=== PATIENT | male | born 1970 | race Caucasian/White ===

== ENCOUNTER 2019-08-08 12:39 | Day surgery (SDC) | payer OTHER ==
[~2019-08-08] VITALS: Ht 177.8 cm; Wt 87.2 kg
[~2019-08-08 12:39] MED LIST: ACET325 PO; ADAL40PEN SC; ARIP10 PO; Abilify5 MG; BISA10S PR; CIPRO; CYCL10 PO; DOCU100 PO; EMBREL INJ; ESCI20 PO; FAMO20 PO; Flomax0.4 MG PO; HYDMOR2 PO; Indomethacin50 MG PO; LEVO750 PO; LEXAPRO PO; MELO7.5 PO; METTREX2.5 PO; OMEP20ER PO; ONDA4ODT PO; OXYACE5T PO; PRAV10 PO; Prilosec20 MG PO; Robaxin500 MG PO; SACC250C PO; SUCR1 PO; Sulfamethoxazo1 EAC4 PO; Synthroid25 MCG PO; TAMS.4ER PO; TREXALL PO; [UNRECOGNIZED DRUG - REMARK]; [UNRECOGNIZED DRUG - REMARK]
--- NOTE | 2019-08-08 16:34 | NUR ---
08/08/19 1634 Marisabel David PT IS UP IN RECLINER, NO COMPLAINTS OF PAIN OR NAUSEA, IS AT CHAIRSIDE. VSS. PT IS COLD, SHAKING, PROVIDED HIM WITH WARM BLANKETS, HE IS VERY TALKATIVE NOW THAT HE IS IN THE RECLINER, HE ASKS A LOT OF QUESTIONS WHICH WERE ANSWERED. CALL LIGHT IN REACH.
== END 2019-08-08 17:10 | disposition home or self-care (01) ==
LOC: ORSCSDS 12:39
PROVIDERS: Orthopaedic Surgery
PROC: 0RNJ4ZZ Release Right Shoulder Joint, Percutaneous Endoscopic Approach (ICD-10-PCS; principal; 2019-08-08 14:05)
PROC: 0LS14ZZ Reposition Right Shoulder Tendon, Percutaneous Endoscopic Approach (ICD-10-PCS; principal; 2019-08-08 14:05)
PROC: 0LQ14ZZ Repair Right Shoulder Tendon, Percutaneous Endoscopic Approach (ICD-10-PCS; principal; 2019-08-08 14:05)
DX: M75.121 Complete rotator cuff tear or rupture of right shoulder, not specified as traumatic (principal); M75.21 Bicipital tendinitis, right shoulder; M75.51 Bursitis of right shoulder; M75.41 Impingement syndrome of right shoulder; E03.9 Hypothyroidism, unspecified; Z87.891 Personal history of nicotine dependence; Z79.899 Other long term (current) drug therapy
CPT/HCPCS: 82947; C1713; J0171; J0690; J1100; J1885; J2250; J2370; J2405; J2704; J2710; J2795; J3010; J7120

== ENCOUNTER 2022-06-05 00:58 | Day surgery (SDC) | payer OTHER ==
[~2022-06-05] VITALS: Wt 86.3 kg
[~2022-06-05 00:58] MED LIST changes: +INFLECTRA100 MG IV
== END 2022-06-05 11:55 | disposition home or self-care (01) ==
LOC: ATC 00:58
DX: L40.50 Arthropathic psoriasis, unspecified (principal); E03.9 Hypothyroidism, unspecified; Z88.8 Allergy status to other drugs, medicaments and biological substances; Z87.891 Personal history of nicotine dependence
CPT/HCPCS: 96375; 96413; 96415; A9270; J2920; J7050; Q5103

== ENCOUNTER 2022-07-31 01:24 | Day surgery (SDC) | payer OTHER ==
[~2022-07-31] VITALS: Wt 85.6 kg
== END 2022-07-31 12:05 | disposition home or self-care (01) ==
LOC: ATC 01:24
DX: L40.59 Other psoriatic arthropathy (principal); Z87.891 Personal history of nicotine dependence; E03.9 Hypothyroidism, unspecified; Z88.8 Allergy status to other drugs, medicaments and biological substances; M1A.9XX0 Chronic gout, unspecified, without tophus (tophi)
CPT/HCPCS: 96375; 96413; 96415; A9270; J2920; J7050; Q5103

== ENCOUNTER 2022-09-30 02:30 | Day surgery (SDC) | payer OTHER ==
[~2022-09-30] VITALS: Wt 86.5 kg
== END 2022-09-30 12:00 | disposition home or self-care (01) ==
LOC: ATC 02:30
DX: L40.50 Arthropathic psoriasis, unspecified (principal); E03.9 Hypothyroidism, unspecified; M1A.0790 Idiopathic chronic gout, unspecified ankle and foot, without tophus (tophi); Z88.8 Allergy status to other drugs, medicaments and biological substances; Z87.891 Personal history of nicotine dependence
CPT/HCPCS: A9270; J1200; J2920; J7050; Q5103

== ENCOUNTER 2022-11-25 00:56 | Day surgery (SDC) | payer OTHER ==
[~2022-11-25] VITALS: Wt 88.5 kg
== END 2022-11-25 11:46 | disposition home or self-care (01) ==
LOC: ATC 00:56
DX: L40.50 Arthropathic psoriasis, unspecified (principal); M1A.9XX0 Chronic gout, unspecified, without tophus (tophi)
CPT/HCPCS: 96375; 96413; 96415; A9270; J1200; J2920; J7050; Q5103

== ENCOUNTER 2023-01-20 00:42 | Day surgery (SDC) | payer OTHER | END 2023-01-20 10:27 | disposition home or self-care (01) | LOC: ATC 00:42 | DX: L40.50 Arthropathic psoriasis, unspecified (principal); M10.9 Gout, unspecified; E03.9 Hypothyroidism, unspecified; Z87.891 Personal history of nicotine dependence | CPT/HCPCS: 96375; 96413; 96415; A9270; J1200; J2920; J7050; Q5103 ==

== ENCOUNTER 2023-03-17 01:22 | Day surgery (SDC) | payer OTHER ==
[2023-03-17 08:13] VITALS: BP 124/96
== END 2023-03-17 11:00 | disposition home or self-care (01) ==
LOC: ATC 01:22
DX: L40.59 Other psoriatic arthropathy (principal)
CPT/HCPCS: 96375; 96413; 96415; A9270; J1200; J2920; J7050; Q5103

== ENCOUNTER 2023-06-29 20:34 | Observation (INO) | payer OTHER ==
[~2023-06-29] VITALS: Ht 175.3 cm; Wt 86.2 kg
[2023-06-29 21:21] LABS: BASOPHILS ABSOLUTE AUTO 0.04 K/mm3 (0.00-0.23); BASOPHILS PERCENT AUTO 1 % (0-2); EOSINOPHILS ABSOLUTE AUTO 0.04 K/mm3 (0.00-0.68); EOSINOPHILS PERCENT AUTO 1 % (0-6); Hematocrit 46.3 % (37.0-53.0); Hemoglobin 15.6 g/dL (13.5-17.5); IMMATURE GRAN ABSOLUTE AUTO 0.03 K/mm3 (0.00-0.10); IMMATURE GRAN PERCENT AUTO 0 % (0-1); LYMPHOCYTES ABSOLUTE AUTO 1.25 K/mm3 (0.84-5.20); LYMPHOCYTES PERCENT AUTO 17 % (21-46); MONOCYTES ABSOLUTE AUTO 0.59 K/mm3 (0.16-1.47); MONOCYTES PERCENT AUTO 8 % (4-13); Mean Corpuscular HGB 30.9 pg (26.0-34.0); Mean Corpuscular HGB Conc 33.7 g/dL (31.5-36.5); Mean Corpuscular Volume 92 fL (80-100); NEUTROPHILS ABSOLUTE AUTO 5.59 K/mm3 (1.96-9.15); NEUTROPHILS PERCENT AUTO 74 % (41-73); Platelet Count 267 K/mm3 (150-400); RDW Standard Deviation 47.6 fL (35.1-46.3); Red Blood Cell Count 5.05 M/mm3 (4.30-5.90); White Blood Cell Count 7.54 K/mm3 (4.00-11.30)
[2023-06-29 21:38] LABS: Albumin, Blood 3.6 g/dL (3.4-5.0); Albumin/Globulin Ratio 1.1 (0.8-1.8); Bilirubin, Total 2.3 mg/dL (0.1-1.0); Calcium, Blood 8.6 mg/dL (8.5-10.1); Creatinine, Blood 1.6 mg/dL (0.60-1.20); Globulin, Blood 3.4 g/dL (2.2-4.0); Potassium, Blood 4.1 mmol/L (3.5-5.5)
[2023-06-30] VITALS (14 sets, daily range): BP systolic 102–139; BP diastolic 63–102
--- NOTE | 2023-06-30 02:51 | NUR ---
ADMIT PT ACTIVELY VOMITTING UPON ARRIVAL FROM ER. EMESIS APPEARED TO BE YELLOW IN COLOR. ALERT, ORIENTED, INDEP FROM GURNEY TO BED. VITALS STABLE. PT REPORTS FEELING BETTER AFTER EMESIS. COMPLAINS OF 5/10 ABD PAIN. RESIDENT AT BEDSIDE DURING ASSESSMENT. VERBAL ORDERS GIVEN AND ZOFRAN, DILAUDID, FLUIDS AND ABX STARTED. EDUCATED ON NPO STATUS. ORIENTED TO ROOM AND CALL LIGHT.
[2023-06-30 04:32] LABS: Albumin, Blood 3.4 g/dL (3.4-5.0); Albumin/Globulin Ratio 1.1 (0.8-1.8); Bun/Creatinine Ratio 9.5 (12.0-20.0); Calcium, Blood 8.4 mg/dL (8.5-10.1); Creatinine, Blood 1.48 mg/dL (0.60-1.20); Globulin, Blood 3.2 g/dL (2.2-4.0); Potassium, Blood 4.1 mmol/L (3.5-5.5); Total Protein, Blood 6.6 g/dL (6.4-8.2)
--- NOTE | 2023-06-30 04:41 | NUR ---
SHIFT SUMMARY NO ACUTE CHANGES SINCE ADMIT. HAS RESTED WELL. PLAN FOR MRI TODAY. CALL LIGHT WITHIN REACH.
--- NOTE | 2023-06-30 10:52 | NUR ---
SPOKE WITH DR. MEJIAS, PLAN IS FOR MRI TODAY AND THEN TRANSFER TO [facility] WHEN TRANSPORT AVALIBLE. PT AND PT FAMILY AWARE
--- NOTE | 2023-06-30 13:37 | NUR ---
DR. CURRY IN ROOM AT 1330, PLAN NOW IS FOR SURGERY.PT PREPED
--- NOTE | 2023-06-30 14:04 | NUR ---
PT TO OR AT THIS TIME
--- NOTE | 2023-06-30 14:38 | NUR ---
PT EDUCATED ON RISK FOR IGNITION AND EDUCATED ON THE DANGER OF SMOKING WHILE USING OXYGEN. PT VERBALIZED UNDERSTANDING
--- NOTE | 2023-06-30 17:58 | NUR ---
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 PT TO ROOM AT 1645, A/O, VSS, SURGICAL SITES WNL. PT ASKING FOR SOMETHING TO DRINK, NO N/V AND DENIES PAIN AT THIS TIME. PT TOLD TO CALL STAFF IF HE NEEDS TO VOID, FOR ASSISTANCE THE FIRST TIME OOB. PT AT BEDSIDE, PT HAS CALL LIGHT.
[2023-07-01 04:16] LABS: Hematocrit 39.8 % (37.0-53.0); Hemoglobin 13.2 g/dL (13.5-17.5); Mean Corpuscular HGB 30.8 pg (26.0-34.0); Mean Corpuscular HGB Conc 33.2 g/dL (31.5-36.5); Mean Corpuscular Volume 93 fL (80-100); Mean Platelet Volume 11.4 fL (9.1-12.4); Platelet Count 231 K/mm3 (150-400); RDW Coefficient Variation 14.4 % (11.7-14.2); RDW Standard Deviation 49.2 fL (35.1-46.3); Red Blood Cell Count 4.28 M/mm3 (4.30-5.90); White Blood Cell Count 9.78 K/mm3 (4.00-11.30)
[2023-07-01 04:34] LABS: Albumin, Blood 2.7 g/dL (3.4-5.0); Albumin/Globulin Ratio 0.9 (0.8-1.8); Bilirubin, Direct 0.8 mg/dL (0.0-0.3); Bilirubin, Indirect 0.5 mg/dL (0.1-0.7); Bilirubin, Total 1.3 mg/dL (0.1-1.0); Bun/Creatinine Ratio 9.1 (12.0-20.0); Calcium, Blood 8.1 mg/dL (8.5-10.1); Creatinine, Blood 1.43 mg/dL (0.60-1.20); Globulin, Blood 3.1 g/dL (2.2-4.0); Potassium, Blood 4.1 mmol/L (3.5-5.5); Total Protein, Blood 5.8 g/dL (6.4-8.2)
[2023-07-01 06:20] VITALS: BP 91/54
[2023-07-01 07:15] VITALS: BP 113/76
--- NOTE | 2023-07-01 07:33 | NUR ---
POD 1 S/P LAP FINN. PT VSS T/O NIGHT. INCISIONS CDI. PT REP PAIN MINIMAL, DENIED NEED FOR PAIN MEDS. PT PETR REG PO, DENIED N/V, REP +FLATUS. PT UP INDEP IN ROOM, PETR WELL. NO IGNITION RISKS IDENTIFIED.
--- NOTE | 2023-07-01 09:55 | NUR ---
Pt. is awake in bed and welcoems my visit. Pt. is pleasant and verbalizes an expectation to be discharged home today. Facilitate a life review and establish rapport. Pt. displays evidence of being aware and engaged with a strong family and orthodox support system. Listen with interest and empathy. Pt. verbalized gratitude for the spiritual care visit.
[2023-07-01] MEDS ORDERED: Norco 5-325 Ta1 EACH PO (11:27)
== END 2023-07-01 11:52 | disposition home or self-care (01) ==
LOC: ER 20:34 → SURS 20:35
PROVIDERS: Family Medicine; Internal Medicine; Student in an Organized Health Care Education/Training Program; Surgery; ADMIT Internal Medicine
DX: K80.12 Calculus of gallbladder with acute and chronic cholecystitis without obstruction (principal); N20.0 Calculus of kidney; K85.90 Acute pancreatitis without necrosis or infection, unspecified; K86.2 Cyst of pancreas; F41.9 Anxiety disorder, unspecified; E03.9 Hypothyroidism, unspecified; Z79.890 Hormone replacement therapy; Z79.899 Other long term (current) drug therapy
CPT/HCPCS: 36415; 71046; 74177; 74181; 74300; 76705; 80053; 82247; 82248; 83690; 83880; 84484; 85025; 85027; 88304; 93005; 93010; 96365; 96374-59; 96375; 96376; 99285-25; A9270; C1894; G0378; J1100; J1170; J1885; J2250; J2371; J2405; J2543; J2704; J2765; J3010; J7030; Q9967

== ENCOUNTER 2025-05-22 09:44 | Day surgery (SDC) | payer OTHER ==
[~2025-05-22] VITALS: Ht 177.8 cm; Wt 85.7 kg
[~2025-05-22 09:44] MED LIST changes: +Norco 5-325 Ta1 EACH PO; +propofoL 50 ML IV ONE
[2025-05-22] MEDS ORDERED: MONT10T (09:57)
[2025-05-22] MEDS ORDERED: BENADRYL25 MG (09:57)
[2025-05-22] MEDS ORDERED: PRAV20 (09:57)
[2025-05-22] MEDS ORDERED: Lactated Ringer's 1,000 ML IV ONE (10:48)
--- NOTE | 2025-05-22 11:41 | NUR ---
05/22/25 1141 HOMER FULTON,RN DIRECTOR OF CONVENTION SERVICES CHARTING UNDER HOMER Mantilla RN [facility]. VERONICA BOSTON UNABLE TO SIGN INTO [facility] PRIOR TO PROCEDURE.
[2025-05-22 12:10] VITALS: BP 111/94
== END 2025-05-22 12:28 | disposition home or self-care (01) ==
LOC: ORSCSDS 09:44
PROVIDERS: Internal Medicine Gastroenterology
PROC: 0DBK8ZX Excision of Ascending Colon, Via Natural or Artificial Opening Endoscopic, Diagnostic (ICD-10-PCS; principal; 2025-05-22 11:15)
PROC: 0DBP8ZX Excision of Rectum, Via Natural or Artificial Opening Endoscopic, Diagnostic (ICD-10-PCS; principal; 2025-05-22 11:15)
PROC: 0DJ08ZZ Inspection of Upper Intestinal Tract, Via Natural or Artificial Opening Endoscopic (ICD-10-PCS; principal; 2025-05-22 11:15)
DX: R19.4 Change in bowel habit (principal); K21.00 Gastro-esophageal reflux disease with esophagitis, without bleeding; R10.13 Epigastric pain; D12.8 Benign neoplasm of rectum; K63.5 Polyp of colon; Z87.11 Personal history of peptic ulcer disease; Z79.899 Other long term (current) drug therapy
CPT/HCPCS: 88305; J2704

== ENCOUNTER 2025-09-17 06:06 | Day surgery (SDC) | payer OTHER ==
[~2025-09-17] VITALS: Ht 175.3 cm; Wt 91.8 kg
[~2025-09-17 06:06] MED LIST changes: +BENADRYL25 MG; +MONT10T; +PRAV20; -propofoL 50 ML IV ONE
[2025-09-17] MEDS ORDERED: Tranexamic Acid 100 ML IV ONE (06:22)
[2025-09-17] MEDS ORDERED: ALLO100 PO (06:43)
--- NOTE | 2025-09-17 07:04 | NUR ---
09/17/25 0704 DAISY BOWLING PT IS READY FOR THE OR, AWAITING SURGEON AND ANES. AT BEDSIDE. CALL LIGHT IN REACH. PT EDUCATED ON PRE OP/POST OP TEACHING W/ALL QUESTIONS ASKED AND ANSWERED. DISCUSSED NOSE FLUSHES AND RX. WILL CONT TO MONITOR UNTIL TX TO OR.
[2025-09-17] MEDS ORDERED: EPINEPhrine HCl 1 MG / ML 30ML Vial ONE (07:06)
[2025-09-17] MEDS ORDERED: Lidocaine 2%-Epineph 1:200000 20 ML SDV ONE (07:06)
[2025-09-17] MEDS ORDERED: FentaNYL Citrate 50 MCG/ML 2 ML Injection ONE (07:17)
[2025-09-17] MEDS ORDERED: Rocuronium Bromide 10 MG/ML 5ML Injection IV ONE (07:19)
[2025-09-17] MEDS ORDERED: Dexamethasone Sod Phos 10 MG/ML 1ML VIAL ONE (07:35)
[2025-09-17] MEDS ORDERED: Phenylephrine HCl 100 MCG/ML-NS 10MLSYR (1MG/10ML) ONE (07:41)
--- NOTE | 2025-09-17 07:49 | NUR ---
09/17/25 0749 Neno Trevino GIVEN AT 0734.
[2025-09-17] MEDS ORDERED: Ondansetron HCl 2 MG / ML 2ML Vial ONE (08:16)
[2025-09-17] MEDS ORDERED: Sugammadex Sodium 200 MG/2ML SDV (100 MG/ML) ONE (08:18)
[2025-09-17] MEDS ORDERED: Naloxone HCl 0.4MG / ML 1ML Vial ONE (08:34)
--- NOTE | 2025-09-17 09:00 | NUR ---
09/17/25 0900 Maida Coreas REPORT RECEIVED FROM BING AND RN. PT ASLEEP WITH OA IN PLACE UPON ARRIVAL AND PLACED ON 6L BNC. OA REMOVED AT 0853 AND PT CURRENTLY AROUSABLE TO VOICE AND FOLLOWS COMMANDS. NO DRAINAGE NOTED AT THIS TIME. PT DENIES PAIN OR NAUSEA.
--- NOTE | 2025-09-17 09:06 | NUR ---
09/17/25 0906 Maida Coreas REPORT GIVEN TO VERONICA LAWSON
[2025-09-17 10:02] VITALS: BP 119/95
== END 2025-09-17 10:06 | disposition home or self-care (01) ==
LOC: ORSCSDS 06:06
PROVIDERS: Otolaryngology
PROC: 09BM0ZZ Excision of Nasal Septum, Open Approach (ICD-10-PCS; principal; 2025-09-17 07:30)
PROC: 09SL0ZZ Reposition Nasal Turbinate, Open Approach (ICD-10-PCS; principal; 2025-09-17 07:30)
DX: J34.2 Deviated nasal septum (principal); J34.3 Hypertrophy of nasal turbinates; J30.89 Other allergic rhinitis; E78.5 Hyperlipidemia, unspecified; Z87.891 Personal history of nicotine dependence; F41.9 Anxiety disorder, unspecified; F32.A Depression, unspecified; L40.50 Arthropathic psoriasis, unspecified; E07.9 Disorder of thyroid, unspecified; Z79.899 Other long term (current) drug therapy
CPT/HCPCS: J0165; J1100; J2312; J2371; J2405; J2704; J3010